=== PATIENT | male | born 1965 | race Caucasian/White ===

== ENCOUNTER 2023-01-15 13:56 | Emergency (ER) | payer SELFPAY ==
[~2023-01-15] VITALS: Ht 175.3 cm; Wt 83.9 kg
[2023-01-15] MEDS ORDERED: DOXY100 PO (16:22)
[2023-01-15] MEDS ORDERED: LIDO700A20 TOP (16:22)
[2023-01-15 16:53] VITALS: BP 170/87
== END 2023-01-15 16:52 | disposition home or self-care (01) ==
LOC: ER 13:56
DX: S20.212A Contusion of left front wall of thorax, initial encounter (principal); S00.01XA Abrasion of scalp, initial encounter; J18.9 Pneumonia, unspecified organism; I10 Essential (primary) hypertension; F17.210 Nicotine dependence, cigarettes, uncomplicated; Z88.0 Allergy status to penicillin; Y04.8XXA Assault by other bodily force, initial encounter
CPT/HCPCS: 71046; A9270

== ENCOUNTER 2025-03-25 02:15 | Observation (INO) | payer OTHER ==
[~2025-03-25] VITALS: Ht 175.3 cm; Wt 74.3 kg
[~2025-03-25 02:15] MED LIST: DOXY100 PO; LIDO700A20 TOP
[2025-03-25] MEDS ORDERED: NITROGLYCERIN IV SCH (02:30)
[2025-03-25] MEDS ORDERED: DEXTROSE IV SCH (02:30)
[2025-03-25 02:47] LABS: BASOPHILS ABSOLUTE AUTO 0.03 K/mm3 (0.00-0.23); BASOPHILS PERCENT AUTO 0 % (0-2); EOSINOPHILS ABSOLUTE AUTO 0.06 K/mm3 (0.00-0.68); EOSINOPHILS PERCENT AUTO 0 % (0-6); Hematocrit 47.9 % (37.0-53.0); Hemoglobin 16.1 g/dL (13.5-17.5); IMMATURE GRAN ABSOLUTE AUTO 0.04 K/mm3 (0.00-0.10); IMMATURE GRAN PERCENT AUTO 0 % (0-1); LYMPHOCYTES ABSOLUTE AUTO 1.42 K/mm3 (0.84-5.20); LYMPHOCYTES PERCENT AUTO 11 % (21-46); MONOCYTES ABSOLUTE AUTO 0.72 K/mm3 (0.16-1.47); MONOCYTES PERCENT AUTO 5 % (4-13); Mean Corpuscular HGB Conc 33.6 g/dL (31.5-36.5); Mean Corpuscular Volume 91 fL (80-100); NEUTROPHILS ABSOLUTE AUTO 11.30 K/mm3 (1.96-9.15); NEUTROPHILS PERCENT AUTO 83 % (41-73); NRBC ABSOLUTE 0.00 K/mm3 (0.00-0.02); NRBC Auto 0.0 /100 WBC (0.0-0.2); Platelet Count 286 K/mm3 (150-400); RDW Coefficient Variation 12.8 % (11.7-14.2); RDW Standard Deviation 42.7 fL (35.1-46.3)
[2025-03-25 02:59] LABS: Magnesium, Blood 1.9 mg/dL (1.6-2.4)
[2025-03-25 03:00] LABS: Alanine Aminotransfer (ALT/SGP 19.0 U/L (12-78); Albumin, Blood 3.6 g/dL (3.4-5.0); Albumin/Globulin Ratio 1.0 (0.8-1.8); Anion Gap 5.0 mmol/L (3-11); Aspartate Aminotrans (AST/SGOT 16.0 U/L (12-37); Bilirubin, Total 0.6 mg/dL (0.1-1.0); Blood Urea Nitrogen 16.0 mg/dL (8-24); CO2, Blood 28.0 mmol/L (21-32); Calcium, Blood 8.7 mg/dL (8.5-10.1); Chloride, Blood 107.0 mmol/L (98-108); Creatinine, Blood 1.47 mg/dL (0.60-1.20); Globulin, Blood 3.5 g/dL (2.2-4.0); Glucose, Blood 153.0 mg/dL (70-99); Potassium, Blood 4.3 mmol/L (3.5-5.5); Sodium, Blood 136.0 mmol/L (136-145); Total Protein, Blood 7.1 g/dL (6.4-8.2)
[2025-03-25] MEDS ORDERED: HydrALAZINE HCl 20 MG / ML 1ML Vial IV PRN (04:00)
[2025-03-25] MEDS ORDERED: Ondansetron HCl 2 MG / ML 2ML Vial IV PRN (04:00)
[2025-03-25] MEDS ORDERED: LevoFLOXacin 750 MG/D5W 150ML 150 ML IV SCH (09:00)
[2025-03-25] MEDS ORDERED: Lactobacil 2-S.Thermo-Bifido 1 1 Cap PO SCH (09:00)
[2025-03-25 10:36] LABS: CHOL/HDL RATIO 3.0; Cholesterol 154 mg/dL (50-200); HDL Cholesterol 51 mg/dL (>39); LDL/HDL RATIO 1.6; Low Density Lipoprotein Chol 84 mg/dL (0-110); Triglycerides 96 mg/dL (30-160); Very Low Density Lipoprot Chol 19 mg/dL (6-32)
[2025-03-25 12:29] LABS: U Amphetamine Screen DETECTED; U Barbituate Screen Not Detected; U Benzodiazapine Screen Not Detected; U Buprenorphine Screen Not Detected; U Cannabinoids Screen DETECTED; U Cocaine Screen Not Detected; U Methadone Screen Not Detected; U Methamphetamine Screen DETECTED; U Opiates Screen Not Detected; U Oxycodone Screen Not Detected; U Phencyclidine Screen Not Detected
--- NOTE | 2025-03-25 12:30 | NUR ---
PT ARRIVED TO UNIT FROM ER VIA GURNEY. HE AMBULATED TO THE STANDING SCALE AND THEN BED W/MINIMAL ASSISTANCE. PT IS A&Ox4 AND ABLE TO MAKE NEEDS KNOWN. HE IS ON RA W/O2 SATS > 92%. PT IS C/O 9/10 PAIN TO CHEST AND ALSO C/O HEADACHE. ADINISTERED PRN T3 PER EMAR. HE IS A x1 ASSIST W/AMBULATION D/T PAIN. NO OTHER NEEDS OR CONCERNS NOTED @ THIS TIME. BED IN LOW POSITION, CALL LIGHT AND PERSONAL BELONGINGS IN REACH.
[2025-03-25] MEDS ORDERED: Acetaminophen/Codeine 300-30 mg PO PRN (12:40)
[2025-03-25 13:05] VITALS: BP 161/104
[2025-03-25 15:52] VITALS: BP 153/107
[2025-03-25 20:20] VITALS: BP 166/110
[2025-03-25 23:44] VITALS: BP 164/104
[2025-03-26 04:28] VITALS: BP 159/103
--- NOTE | 2025-03-26 05:32 | NUR ---
SHIFT SUMMARY PT IS A&O X4, ABLE TO MAKE NEEDS KNOWN, MOVING ALL EXTREMITIES WITH PURPOSE, REPOSITIONING SELF IN BED. SPO2 GREATER 90% ON RA, LUNGS SOUND CLEAR T/O, NO SIGNS OF RESPIRATORY DISTRESS NOTED T/O THIS SHIFT, PT DENIES SOB WHILE AT REST. CONTINUOUS TELE MONITORING, SINUS 70-90 S, PULSES PRESENT T/O, PT REPORTING CHEST PAIN THAT IS WORSE WITH DEEP BREATHING, BP ELEVATED BUT WITH IN PARAMETERS PER DAY SHIFT DR AGUIRRE S NOTE. BOWEL TONES PRESENT IN ALL 4Q, PT DENIES FEELINGS OF NAUSEA, OR CONSTIPATION. USING URINAL IND. PT REFUSING AM LABS DESPITE EDUCATION BED LOWEST POSITION, CALL LIGHT IN REACH, AWAITING TO GIVE REPORT TO ONCOMING RN.
[2025-03-26 08:25] VITALS: BP 171/82
--- NOTE | 2025-03-26 09:53 | NUR ---
Discharge/ AMA note. Pt decided to leave AMA this shift. Pt was informed of the risks of leaving before discharge. Pt reported he is well aware of the risks. Pt reported that he plans on filling prescriptions and following up with a PCP. MD is aware of discharge and spoke with Pt. Pt was escorted most of the way to the exit, where Pt wanted to wait for his ride. All belongings were taken with Pt.
== END 2025-03-26 09:48 | disposition left against medical advice (07) ==
LOC: ER 02:15 → ERHOLD 02:16 → PCU 12:29
PROVIDERS: Internal Medicine; Student in an Organized Health Care Education/Training Program; ADMIT Student in an Organized Health Care Education/Training Program
DX: R07.89 Other chest pain (principal); I16.0 Hypertensive urgency; I12.9 Hypertensive chronic kidney disease with stage 1 through stage 4 chronic kidney disease, or unspecified chronic kidney disease; N18.31 Chronic kidney disease, stage 3a; F15.10 Other stimulant abuse, uncomplicated; R91.8 Other nonspecific abnormal finding of lung field; F17.210 Nicotine dependence, cigarettes, uncomplicated; Z88.0 Allergy status to penicillin
CPT/HCPCS: 71045; 80053; 80061; 82947; 83036; 83735; 84443; 84484; 85025; 96365; 96366; 96367; 96375; 99285-25; A9270; G0378; J0360; J1956; J7120